=== PATIENT | male | born 1965 | race Hispanic/Latino ===

== ENCOUNTER 2016-12-21 18:07 | Emergency (ER) | payer SELFPAY ==
[2016-12-21 18:17] VITALS: BP 118/81
[2016-12-21 18:52] LABS: Basophils % (Auto) 1.1 % (0.0-1.8); Eosinophils % (Auto) 8.1 % (0.0-4.3); Hematocrit 41.4 % (35.5-45.6); Hemoglobin 13.7 gm/dl (11.8-15.2); Mean Corpuscular HGB Conc 33 % (32-34); Mean Corpuscular Hemoglobin 31 pg (28-32); Mean Corpuscular Volume 92 fl (84-94); Platelet Count 204 K/mm3 (140-440); Red Blood Count 4.49 M/mm3 (3.65-5.03); Red Cell Distribution Width 13.8 % (13.2-15.2); White Blood Count 6.1 K/mm3 (4.5-11.0)
[2016-12-21 18:59] LABS: Alanine Aminotransferase 29 units/L (7-56); Albumin/Globulin Ratio 1.5 %; Alkaline Phosphatase 114 units/L (35-129); Anion Gap 20 mmol/L; BUN/Creatinine Ratio 16.25; Bilirubin,Total 0.5 mg/dL (0.1-1.2); Blood Urea Nitrogen 13 mg/dL (9-20); Calcium 8.8 mg/dL (8.4-10.2); Carbon Dioxide 22 mmol/L (22-30); Chloride 97.9 mmol/L (98-107); Glucose 283 mg/dL (75-100); Lipase 18 units/L (13-60); Potassium 3.8 mmol/L (3.6-5.0); Sodium 136 mmol/L (137-145); Total Protein 6.7 g/dL (6.3-8.2)
[2016-12-21 19:18] LABS: Bilirubin,Urine NEG (Negative); Blood,Urine NEG (Negative); Ketones,Urine NEG (Negative); Leukocyte Esterase,Urine NEG (Negative); Mucus,Urine FEW /HPF; Nitrite,Urine NEG (Negative); Protein,Urine <15 mg/dL mg/dL (Negative); Urobilinogen,Urine < 2.0 mg/dL (<2.0); WBC,Urine < 1.0 /HPF (0.0-6.0)
--- NOTE | 2016-12-22 07:51 | ED Elopement Review ---
ED Pt Elopement review - Results review Lab results: Laboratory Tests 12/21/16 12/21/16 12/21/16 18:26 18:26 18:41 WBC 6.1 RBC 4.49 Hgb 13.7 Hct 41.4 MCV 92 MCH 31 MCHC 33 RDW 13.8 Plt Count 204 Lymph % (Auto) 36.2 H Dougherty % (Auto) 8.1 H Eos % (Auto) 8.1 H Baso % (Auto) 1.1 Lymph # 2.2 Dougherty # 0.5 Eos # 0.5 H Baso # 0.1 Seg Neutrophils % 46.5 Seg Neutrophils # 2.9 Sodium 136 L Potassium 3.8 Chloride 97.9 L Carbon Dioxide 22 Anion Gap 20 BUN 13 Creatinine 0.8 Estimated GFR > 60 BUN/Creatinine Ratio 16.25 Glucose 283 H Calcium 8.8 Total Bilirubin 0.5 AST 21 ALT 29 Alkaline Phosphatase 114 Total Protein 6.7 Albumin 4.0 Albumin/Globulin Ratio 1.5 Lipase 18 Urine Color Yellow Urine Turbidity Clear Urine pH 5.0 Ur Specific [place] 1.030 Urine Protein <15 mg/dl Urine Glucose (UA) >=500 Urine Ketones Neg Urine Blood Neg Urine Nitrite Neg Urine Bilirubin Neg Urine Urobilinogen < 2.0 Ur Leukocyte Esterase Neg Urine WBC (Auto) < 1.0 Urine RBC (Auto) 1.0 Urine Mucus Few - Call Back decision Pt Call Back Decision: Pt to F/U with PMD (elevated glucose on recent vists. Pt is likely a diabetic and will need meds and diabetic teaching)
== END 2016-12-21 23:05 | disposition left against medical advice (07) ==
LOC: ED 18:07
DX: R31.9 Hematuria, unspecified (principal); R30.9 Painful micturition, unspecified; Z53.21 Procedure and treatment not carried out due to patient leaving prior to being seen by health care provider
CPT/HCPCS: 36415; 80053; 81001; 83690; 85025

== ENCOUNTER 2016-12-24 16:18 | Emergency (ER) | payer SELFPAY ==
[2016-12-24 16:48] VITALS: BP 120/68
--- NOTE | 2016-12-24 18:55 | Emergency Department Report ---
ED General Adult HPI - General Chief complaint: Skin Rash Stated complaint: RASH ON BACK/LWR REGION /ABD AREA Time Seen by Provider: 12/24/16 18:47 Source: patient, RN notes reviewed Mode of arrival: Ambulatory Limitations: No Limitations - History of Present Illness Initial comments: PT reports itching x 2-3 days. PT states he noticed a rash this morning. PT states the only new medication that he has taken is Cipro. PT states he finished the cipro last month. PT states he has not taken any other medication. PT denies any new exposures. PT denies close contacts with rash. MD Complaint: rash -: Gradual Location: back Severity scale (0 -10): 0 Quality: other (itchy ) Consistency: constant Improves with: none Associated Symptoms: denies: fever/chills, loss of appetite, nausea/vomiting Treatments Prior to Arrival: none - Related Data Previous Rx's Medication Instructions Recorded Last Taken Type hydrOXYzine PAMOATE [Vistaril] 25 mg PO Q6HR PRN #12 capsule 12/24/16 Unknown Rx Allergies Allergy/AdvReac Type Severity Reaction Status Date / Time ciprofloxacin [From Cipro] Allergy Rash Verified 12/24/16 16:49 ciprofloxacin HCl Allergy Rash Verified 12/24/16 16:49 [From Cipro] ED Review of Systems ROS: Stated complaint: RASH ON BACK/LWR REGION /ABD AREA Other details as noted in HPI Comment: All other systems reviewed and negative Constitutional: denies: chills, fever ENT: denies: throat pain Skin: rash, change in color ED Past Medical Hx - Past Medical History Previous Medical History?: Yes Hx Hypertension: Yes Hx Diabetes: Yes Additional medical history: prostatitis - Surgical History Past Surgical History?: Yes Additional Surgical History: L wrist surg - Social History Smoking Status: Never Smoker Substance Use Type: Prescribed - Medications Home Medications: Home Medications Medication Instructions Recorded Confirmed Last Taken Type hydrOXYzine PAMOATE [Vistaril] 25 mg PO Q6HR PRN #12 capsule 12/24/16 Unknown Rx ED Physical Exam - General Limitations: No Limitations General appearance: alert, in no apparent distress - Head Head exam: Present: atraumatic, normocephalic - Eye Eye exam: Present: normal appearance. Absent: conjunctival injection - ENT ENT exam: Present: normal exam, normal orophraynx, mucous membranes dry - Neck Neck exam: Present: normal inspection, full ROM - Respiratory Respiratory exam: Present: normal lung sounds bilaterally - Cardiovascular Cardiovascular Exam: Present: regular rate, normal rhythm - GI/Abdominal GI/Abdominal exam: Present: soft. Absent: tenderness - Extremities Exam Extremities exam: Present: normal inspection, full ROM - Back Exam Back exam: Present: normal inspection, full ROM. Absent: tenderness, CVA tenderness (R), CVA tenderness (L) - Neurological Exam Neurological exam: Present: alert, oriented X3 - Psychiatric Psychiatric exam: Present: normal affect, normal mood - Skin Skin exam: Present: warm, dry, intact, erythema (L back with small area of erythema/ excoriation, R low back with three scattered papules ) ED Course Vital Signs 12/24/16 16:43 Temperature 98.6 F Pulse Rate 86 Respiratory 20 Rate Blood Pressure 120/68 O2 Sat by Pulse 99 Oximetry - Reevaluation(s) Reevaluation #1: 12/24/16 18:53 PT looks well, non toxic. PT has cell phone picture of his rash from earlier today. Compared to photo, rash almost completely resolved without intervention. PT Aware of dx and pending dispo. PT aware on driving or ETOH after taking Vistaril - Pulse Oximetry Interpretation Digit-Finger Initial Pulse Oximetry Readin Actions Taken: none ED Medical Decision Making - Differential Diagnosis shingles, scabies, urticaria Critical care attestation.: If time is entered above; I have spent that time in minutes in the direct care of this critically ill patient, excluding procedure time. ED Disposition Clinical Impression: Rash and nonspecific skin eruption Disposition: DISCHARGED TO HOME OR SELFCARE Is pt being admited?: No Does the pt Need Aspirin: No Condition: Stable Instructions: Acute Rash (ED), Viral Exanthem (ED) Additional Instructions: No driving or ETOH after taking Vistaril Follow up with PCP in 3-5 days Referrals: PRIMARY CARE,MD [Primary Care Provider] - 3-5 Days Forms: Work/School Release Form(ED) Time of Disposition: 18:57
== END 2016-12-24 19:17 | disposition home or self-care (01) ==
LOC: ED 16:18
DX: R21 Rash and other nonspecific skin eruption (principal); I10 Essential (primary) hypertension; E11.9 Type 2 diabetes mellitus without complications; Z88.1 Allergy status to other antibiotic agents
CPT/HCPCS: 99282

== ENCOUNTER 2020-10-23 08:25 | Outpatient (CLI) | payer OTHER ==
[2020-10-23 09:13] LABS: Hematocrit 43.3 % (35.5-45.6); Hemoglobin 15.1 gm/dl (11.8-15.2); Mean Corpuscular HGB Conc 35 % (32-34); Mean Corpuscular Volume 90 fl (84-94); Platelet Count 201 K/mm3 (140-440); Red Blood Count 4.79 M/mm3 (3.65-5.03); Red Cell Distribution Width 13.8 % (13.2-15.2)
[2020-10-23 09:45] LABS: Blood Urea Nitrogen 11 mg/dL (9-20); Calcium 9.5 mg/dL (8.4-10.2); Hemolysis Index 6
[2020-10-23 09:47] LABS: BUN/Creatinine Ratio 16
== END 2020-10-23 08:26 | disposition home or self-care (01) ==
LOC: LAB 08:25
PROVIDERS: ATTEND Surgery
DX: K40.90 Unilateral inguinal hernia, without obstruction or gangrene, not specified as recurrent (principal)
CPT/HCPCS: 36415; 80048; 83036; 85027

== ENCOUNTER 2020-11-21 05:39 | Day surgery (SDC) | payer OTHER ==
[2020-11-21] MEDS ORDERED: LACTATED RINGERS 1,000 ML ONE (06:04)
[2020-11-21] MEDS ORDERED: BACTERIOSTATIC SODIUM CHLORIDE 0.9% 30 ML VIAL INFILTRATI ONE (06:04)
[2020-11-21] MEDS ORDERED: LACTATED RINGERS 1,000 ML IV SCH (06:15)
[2020-11-21] MEDS ORDERED: ceFAZolin/STERILE WATER 2 GM/20 ML SYRINGE IV NR (07:00)
[2020-11-21] MEDS ORDERED: LIDOCAINE (1%) 10 MG/1 ML VIAL 20 ML MDV ONE (07:10)
[2020-11-21] MEDS ORDERED: BUPIVACAINE/PF (0.5%) 5 MG/1 ML 30 ML VIAL INFILTRATI ONE ×2 (07:10→08:49)
--- NOTE | 2020-11-21 07:17 | Anesthesia Consultation ---
Anesthesia Consult and Med Hx Date of service: 11/21/20 - Airway Anesthetic Teeth Evaluation: Good ROM Head & Neck: Adequate Mental/Hyoid Distance: Adequate Mallampati Class: Class II Intubation Access Assessment: Good - Pulmonary Exam CTA: Yes - Cardiac Exam Cardiac Exam: RRR - Pre-Operative Health Status ASA Pre-Surgery Classification: ASA2 Proposed Anesthetic Plan: General - Pulmonary Hx Smoking: No Hx Asthma: No COPD: No Hx Pneumonia: No Hx Sleep Apnea: No (TESTED NEG---SNORES) - Cardiovascular System Hx Heart Attack/AMI: No Hx Pacemaker: No Hx Internal Defibrillator: No Hx Heart Murmur: No - Central Nervous System Hx Seizures: No Hx Back Pain: Yes (LOWER AND NECK PAIN OCC.) Hx Psychiatric Problems: No - Endocrine Hx End Stage Renal Disease: No Hx Cirrhosis: No Hx Liver Disease: No Hx Insulin Dependent Diabetes: No Hx Non-Insulin Dependent Diabetes: No (diet control) - Hematic Hx Anemia: No Hx Sickle Cell Disease: No - Other Systems Hx Alcohol Use: No Hx Substance Use: No Hx Cancer: No
--- NOTE | 2020-11-21 07:17 | Anesthesia Day of Surgery ---
Anesthesia Day of Surgery - Day of Surgery Patient Examined: Yes Patient H&P Reviewed: Yes Patient is NPO: Yes
[2020-11-21] MEDS ORDERED: MIDAZOLAM 2 MG/2 ML INJ IV NR (07:21)
[2020-11-21] MEDS ORDERED: MIDAZOLAM 2 MG/2 ML INJ ONE (07:22)
[2020-11-21] MEDS ORDERED: SUCCINYLCHOLINE CHLORIDE 200 MG/10 ML INJ MDV ONE (07:34)
[2020-11-21] MEDS ORDERED: ROCURONIUM 50 MG/5 ML INJ IV ONE (07:34)
[2020-11-21] MEDS ORDERED: ONDANSETRON 4 MG/2 ML INJ ONE (07:34)
[2020-11-21] MEDS ORDERED: NEOSTIGMINE 10MG/10 ML INJ MDV ONE (07:34)
[2020-11-21] MEDS ORDERED: PHENYLEPHRINE/NS 1,000 MCG/10 ML SYRINGE (OR USE) IV ONE (07:34)
[2020-11-21] MEDS ORDERED: dexAMETHasone 20 MG/5 ML VIAL ONE (07:34)
[2020-11-21] MEDS ORDERED: propofoL 200 MG/20 ML VIAL IV ONE (07:35)
[2020-11-21] MEDS ORDERED: fentaNYL 100 MCG/2 ML INJ ONE (07:35)
[2020-11-21] MEDS ORDERED: GLYCOPYRROLATE 0.4 MG/2 ML INJ ONE (07:35)
[2020-11-21] MEDS ORDERED: LIDOCAINE MPF (2%) 20 MG/1 ML VIAL 5 ML ONE (07:35)
[2020-11-21] MEDS ORDERED: ONDANSETRON 4 MG/2 ML INJ IV PRN (08:26)
[2020-11-21] MEDS ORDERED: HYDROmorphone 1 MG/1 ML INJ IV PRN ×2 (08:26)
[2020-11-21] MEDS ORDERED: LIDOCAINE (1%) 10 MG/1 ML VIAL 20 ML MDV INFILTRATI ONE (08:49)
[2020-11-21] MEDS ORDERED: SODIUM CHLORIDE 0.9% IRR 1,500 ML BOTTLE IR ONE (08:49)
[2020-11-21] MEDS ORDERED: HYDROmorphone 1 MG/1 ML INJ ONE (10:38)
--- NOTE | 2020-11-21 10:53 | Short Stay Summary ---
"Short Stay Documentation Date of service: 11/21/20 - History Principal diagnosis: left inguinal hernia H&P: obtained from office - Allergies and Medications Current Medications: Allergies ciprofloxacin [From Cipro] Allergy (Verified 12/24/16 16:49) Rash Home Medications Medication Instructions Recorded Confirmed Last Taken Type traMADoL [Ultram] 50 mg PO Q6HR PRN #7 tablet 10/18/18 11/13/20 11/20/20 Rx Benzonatate [Tessalon Perles] 100 mg PO PRN PRN 11/10/20 11/13/20 11/20/20 History Docusate Calcium 100 mg PO DAILY 11/10/20 11/10/20 11/20/20 History Simvastatin 20 mg PO DAILY 11/10/20 11/10/20 11/20/20 History glyBURIDE 5 mg PO DAILY 11/10/20 11/10/20 11/20/20 History Active Medications Cefazolin Sodium (Cefazolin/Sterile Water 2 Gm/20 Ml Syringe) 2 gm IV PREOP NR Stop: 11/21/20 22:00 Hydromorphone HCl (Hydromorphone 1 Mg/1 Ml Inj) 0.25 mg IV Q10MIN PRN PRN Reason: Pain, Moderate (4-6) Stop: 11/21/20 23:00 Hydromorphone HCl (Hydromorphone 1 Mg/1 Ml Inj) 0.5 mg IV Q10MIN PRN PRN Reason: Pain , Severe (7-10) Stop: 11/21/20 23:00 Lactated Ringer's (Lactated Ringers) 1,000 mls @ 100 mls/hr IV DIRECT ROSANNE Last Admin: 11/21/20 06:35 Dose: 100 mls/hr Documented by: Midazolam HCl (Midazolam 2 Mg/2 Ml Inj) 2 mg IV ONCE NR Stop: 11/21/20 20:00 Last Admin: 11/21/20 07:24 Dose: 2 mg Documented by: Ondansetron HCl (Ondansetron 4 Mg/2 Ml Inj) 4 mg IV ONCE PRN PRN Reason: Nausea And Vomiting Stop: 11/21/20 23:00 - Brief post op/procedure progress note Date of procedure: 11/21/20 Pre-op diagnosis: left inguinal hernia Post-op diagnosis: same Procedure: robotic assisted left inguinal hernia repair with mesh Anesthesia: GETA, local, other (L ilioginguinal nerve block) Findings: Large indirect hernia containing small cord lipoma and redundant scarred sac Reducible omentum in hernia Surgeon: REBECA ROPER Shaper Set Up Operator: BALDEMAR TRENT Estimated blood loss: minimal Pathology: none Condition: stable - Hospital course Hospital course: Pt observed in PACU and discharged to home in stable condition when criteria met - Disposition Condition at discharge: Good Disposition: DC-01 TO HOME OR SELFCARE Short Stay Discharge Plan Activity: other (no lifting more than 10-15 lbs) Diet: diabetic Wound: open to air Additional Instructions: General Surgery Rebeca Roper, DO [address] [facility], [facility], [place], [facility] | [place] [address] | F ([phone]) [email or web address] You have undergone surgery to repair a left inguinal hernia with mesh Diet: Diabetic diet - make sure to monitor blood glucose Make sure to drink plenty of water and stay hydrated Activity: You are encouraged to walk and may go up and down the steps. [address]. [address] if you are taking prescription, narcotic pain medications. 2. Do not do any heavy lifting greater than 15 lbs for next 6 weeks Showering: You may shower tomorrow tomorrow Pat incision dry, do not scrub. Do not submerge incision in bathtub, pool, hottub for 2 weeks. Wound care instructions: There is glue on your incisions which will fall off on its own. Pain medications: You have been given a prescription for ibuprofen and Percocet. Take exactly as prescribed. If you have any unused prescription pain medication, please return to your pharmacy to have is discarded. You may use ice pack to incisions to help with pain and bruising. Reasons to call Surgeons office: If you have fevers >100.4 If you are having increasing abdominal pain or vomiting If you have pain that is not controlled with prescription pain medications If you have drainage if pus or redness around the incisions. When to come back to see your Surgeon: Please call the office ([phone]) to make an appointment to see the surgeon in 2 week. Call if you have any questions. 11 [facility] Follow up with: PRIMARY CAREMD [Primary Care Provider] - 7 Days REBECA ROPER DO [Staff Physician] - 14 Days Prescriptions: Ibuprofen [Motrin 800 MG tab] 800 mg PO Q8HR 5 Days #30 tablet oxyCODONE /ACETAMINOPHEN [Percocet 5/325] 1 tab PO Q6HR PRN #20 tablet PRN Reason: Pain , Severe (7-10)"
[2020-11-21 12:31] VITALS: BP 117/65
--- NOTE | 2020-11-21 12:32 | Post Anesthesia Evaluation ---
- Post Anesthesia Evaluation Patient Participated: Yes Airway Patent: Yes Stable Respiratory Function: Yes Nausea/Vomiting: No Temp > 96.8F: Yes Pain Manageable: Yes Adequeate Hydration: Yes Anesthesia Complications: No Block Receding Appropriately: Not Applicable Patient on Ventilator: No
--- NOTE | 2020-11-21 13:42 | Operative Report ---
Operative Report Operative Report: Date of procedure: 11/21/20 Pre-op diagnosis: left inguinal hernia Post-op diagnosis: same Procedure: Robotic assisted left inguinal hernia repair with mesh Anesthesia: GETA, local, other (L ilioginguinal nerve block) Findings: Large indirect hernia containing small cord lipoma and redundant scarred sac Reducible omentum in hernia Surgeon: JADYN ROPER Cotton Picking Machine Operator: BALDEMAR TRENT Estimated blood loss: minimal Pathology: none Condition: stable Hospital course: Pt observed in PACU and discharged to home in stable condition when criteria met HPI and indication: Patient is a 55-year-old male with a left inguinal hernia. Patient was referred to the surgery clinic for evaluation. Hernia had been present for greater than 1 year and it was bothersome. A reducible left inguinal hernia was palpated on exam. It was recommended that the hernia be repaired. I discussed all risk, benefits, alternatives to repair with the patient and questions were answered. I explained that if the hernia was found on the right side at the same time, this would be fixed as well. The patient was agreeable. Consent obtained for robotic assisted left inguinal hernia repair with mesh, possible right, possible open. Procedure in detail: Patient was identified in the preoperative area, take back to operating room placed on operative table in supine position. After anesthesia was induced both arms were tucked and all bony prominences padded appropriately. A Navarro catheter was sterilely placed by the circulating nurse. The abdomen and left groin was then prepped and draped in usual sterile fashion a timeout performed. Local anesthetic was infiltrated into skin at the intended incision sites. A supraumbilical incision was made through which a Veress needle was inserted. Veress needle positioning was confirmed using saline drop test and the abdomen insufflated to 15 mmHg without incident. Once the abdomen was insufflated, the Veress needle was removed and a 5 mm Optiview trocar was placed through the incision. The abdomen was inspected and there was no underlying injury to any of the abdominal structures. Patient was placed in Trendelenburg and the pelvis examined. There was a large left inguinal hernia containing omentum which was reduced with gentle external pressure. At this point, an 8 mm right upper quadrant and left upper quadrant robotic trocars were then placed under direct visualization. The 5 mm supraumbilical trocar was removed and replaced with a 12 mm balloon trocar under direct visualization. A Ray-Krista was placed into the abdomen. The robot was then docked. A fenestrated bipolar was placed into arm #2 and a monopolar scissor in arm #1. The surgeon was then transferred to the console. I started by creating a preperitoneal flap. The peritoneum was scored ap proximately 5 to 6 cm from the hernia defect. The peritoneum was then incised from the midline to the ASIS. The preperitoneal flap was then developed in an avascular plane. I first defined the medial margin by dissecting to the pubic tubercle. The pubic tubercle was cleared of overlying fatty tissue using blunt dissection. I then created the lateral margin in a similar fashion. Great care was taken to avoid injury to any nerves. I then started to reduce the hernia sac. The hernia sac was grasped and retracted laterally and cremasteric muscles were divided in a very careful fashion. During the dissection, the cord structures were identified and protected. The cord structures and vas deferens were visualized throughout the entire dissection. There was a small cord lipoma associated with the hernia sac which was reduced. The hernia sac was very redundant and scarred. In order to adequately reduce this, a 5 mm left lateral upper quadrant practice assistant trocar was placed under direct visualization by the practice assistant surgeon. The hernia sac was grasped by the practice assistant surgeon and retracted which facilitated complete reduction of the hernia sac. Once the hernia sac was completely reduced, the peritoneal flap was checked for hemostasis. Any additional cremasteric fibers that were were tenting up the peritoneum were divided. Hemostasis was carefully ensured. The hernia was repaired with a large 3 DMax left-sided mesh. The mesh along with suture material was placed into the abdomen via the 12 mm port. The mesh was positioned in the preperitoneal flap in the usual fashion. The medial portion of the mesh was sutured to Ray's ligament using an interrupted 2-0 Vicryl stitch. The lateral aspect of the mesh was sutured to the anterior lateral abdominal wall using a 2-0 Vicryl interrupted stitch. An 18 Khmer Angiocath was inserted by the practice assistant surgeon through the skin and directly into the preperitoneal flap. The mesh was seen to lay flat in the pocket with excellent coverage. The peritoneum was then reapproximated using 3-0 running V- Loc stitch. A small defect in the peritoneum was repaired using running 2-0 Vicryl stitch. The entirety of the mesh was covered with peritoneum. The robot was then undocked and the surgeon scrubbed back in. The remainder of the case was performed laparoscopically. All sharp materials along with a Ray-Krista were removed from the abdomen under direct visualization. The small cord lipoma was also removed via the 12 mm port. The 12 mm port was removed and the fascia closed using an interrupted 0 Vicryl stitch with a Warren Armenta device. The abdomen was then slowly desufflated and the mesh was seen to lay flat in the preperitoneal space. The remaining trocars were removed, the abdomen desufflated and any scrotal air was evacuated with gentle pressure. Skin incisions were once again infiltrated with local anesthetic. Left ilioinguinal nerve block was also performed with 5 cc of local anesthetic. The skin incisions were approximated with 4-0 Monocryl subcuticular stitches and skin glue. At the end of the case all sponge, instrument, sharp counts were correct x2. Patient was awoken from anesthesia and Navarro catheter removed. Urine was yellow and clear. Both testicles were palpated in anatomic position. The patient was taken to PACU in stable condition.
--- NOTE | 2020-11-22 12:29 | Event Note ---
Date: 11/22/20 (Corneal Abrasion) Patient is having burning in his left eye and says it's as if a grain of sand is in there. I called him in ketorolac gtts to left eye and will follow up with him tomorrow.
--- NOTE | 2020-11-23 14:06 | Event Note ---
Date: 11/23/20 (Corneal Abrasion) I called Mr. Arrington who reports his eye being much better. Just has surgical pain. I told him to continue the eye drops for another 24 hours. He said he will call if anymore problems with his eye.
== END 2020-11-21 13:20 | disposition home or self-care (01) ==
LOC: OR 05:39
PROVIDERS: ATTEND Surgery
DX: K40.90 Unilateral inguinal hernia, without obstruction or gangrene, not specified as recurrent (principal); D17.6 Benign lipomatous neoplasm of spermatic cord; E78.00 Pure hypercholesterolemia, unspecified; I10 Essential (primary) hypertension; E11.9 Type 2 diabetes mellitus without complications; Z86.19 Personal history of other infectious and parasitic diseases; Z98.890 Other specified postprocedural states; Z88.8 Allergy status to other drugs, medicaments and biological substances; Z79.899 Other long term (current) drug therapy
CPT/HCPCS: 49650; 82962; C1781; J0330; J0690; J1100; J1170; J2250; J2370; J2405; J2704; J2710; J3010; J7120; S2900; U0003